=== PATIENT | male | born 1965 | race Caucasian/White ===

== ENCOUNTER 2021-11-21 12:29 | Emergency (ER) | payer BC, SELFPAY ==
[2021-11-21 15:10] VITALS: BP 142/85; PULSE 78; RESP 22; TEMP 36.7; O2SAT 98; BMI 27.1
--- NOTE | 2021-11-21 15:10 | XR_ITS ---
PROCEDURE INFORMATION: Exam: XR Chest Exam date and time: 11/21/2021 3:10 PM Age: 56 years old Clinical indication: Cough TECHNIQUE: Imaging protocol: XR of the chest. Views: 2 views. COMPARISON: No relevant prior studies available. FINDINGS: Lungs: Unremarkable. No consolidation. Pleural spaces: Unremarkable. No pleural effusion. No pneumothorax. Heart/Mediastinum: Unremarkable. No cardiomegaly. Bones/joints: Unremarkable. IMPRESSION: No acute findings.
--- NOTE | 2021-11-21 15:23 | HMH.EDUTC ---
[facility] [place] Disposition Clinical Impression: Bronchitis, Viral syndrome Disposition: Home, Self-Care Condition on Discharge: Good Instructions: Preventing the Spread of Coronavirus Discharge Instructions, DI for COVID-19 (Suspected or Confirmed ) Additional Instructions: Drink plenty of fluids. Take tylenol or ibuprofen for pain or fever. Take the medications as directed. Follow up with your regular doctor. GO TO THE ER FOR ANY WORSENING SYMPTOMS Quarantine until you know the results of your covid-19 test. If it is positive, the health department should call you and give you further instructions about your length of Quarantine and other things. Notify your school or workplace of your results and follow their instructions regarding return to work/school. Prescriptions: Benzonatate [Benzonatate 100mg cap] 100 mg PO TIDP PRN #30 cap PRN Reason: Cough Transmission Status: Pending to [facility] #[id number] methylPREDNISolone [Medrol] 4 mg PO DIRECTED 6 Days #21 packet Transmission Status: Pending to [facility] #[id number] guaiFENesin [Mucinex 600mg tablet] 1 - 2 tab PO BIDP PRN #30 tab PRN Reason: Congestion Transmission Status: Pending to [facility] #[id number] Azithromycin [Z-Alberto 250mg Tab*] 250 mg PO UD DOSE PK #6 tab Transmission Status: Pending to [facility] #[id number] Referrals: Edison Estrella [Primary Care Provider] - Time of Disposition: 15:51 Medical Decision Making - Medical Records Medical records reviewed: No: I reviewed the patient's medical records. - Angus Inquiry Pt receiving controlled substance: No Vital Signs: 11/21/21 15:10 Temperature 98.1 F Temperature Source Oral Pulse Rate [Left] 78 Respiratory Rate 22 Blood Pressure [Right Arm] 142/85 H Blood Pressure Mean [Right Arm] 104 02 Sat by Pulse Oximetry 98 - Lab Data Lab Results 11/21/21 15:30: Influenza Type A Ag Negative, Influenza Type B Ag Negative Orders (Tests/Meds): ORDERS Category Date Time Status Chest XR 2 view (NOT portable) [XR chest 2V] Stat Exams 11/21/21 15:10 Taken Full Resp Panel w/COVID ([facility]) Routine Lab 11/21/21 15:13 Ordered [facility] [place] HPI - General Stated complaint: cough, congestion Time Seen by Provider: 11/21/21 15:23 Mode of Arrival: Ambulatory Source of Information: Patient Limitations: No Limitations Description of Symptoms (Recalled from Triage Doc. by RN): pt c/o a productive cough with green sputum, SOA and chest congestion. HEENT Symptoms (Recalled from RN notes): No Resp Symptoms (Recalled from RN notes): Yes (productive cough with green sputum, chest congestion and SOA) Skin Symptoms (Recalled from RN notes): No MS Symptoms (Recalled from RN notes): No Functional Status (Recalled from RN notes): wnl - History of Present Illness Provider Complaint: He states that for the past 4 days he has been getting more sinus and chest congestion. He denies any fever or chills. HE has been vaccinated against covid-19. - Related Data Previous Rx's Medication Instructions Recorded Azithromycin [Z-Alberto 250mg Tab*] 250 mg PO UD DOSE PK #6 tab 11/21/21 Benzonatate [Benzonatate 100mg 100 mg PO TIDP PRN #30 cap 11/21/21 cap] guaiFENesin [Mucinex 600mg tablet] 1 - 2 tab PO BIDP PRN #30 tab 11/21/21 methylPREDNISolone [Medrol] 4 mg PO DIRECTED 6 Days #21 11/21/21 packet Allergies Allergy/AdvReac Type Severity Reaction Status Date / Time Penicillins Allergy Verified 11/21/21 15:13 - Worker's Comp Is this a Worker's Comp case?: No H History - Hepatitis A Screen Drug use history?: No High risk sexual behaviors?: No History of sexually transmitted infection?: No Currently employed?: No Childcare worker?: No Do you have indoor plumbing?: Yes Do you have electricity?: Yes Attestation statement:: This patient has been screened for Hepatitis A risk factors. I have reviewed the patient's past medical history: Yes ROS Obt
[2021-11-21 15:42] LABS: UTC Influenza A Antigen Negative (Negative); UTC Influenza B Antigen Negative (Negative)
[2021-11-21 16:03] LABS: Adenovirus,PCR Not Detected (NotDetected); Bordetella Pertussis Not Detected (NotDetected); Chlamydophila Pneumoniae, PCR Not Detected (NotDetected); Coronavirus 19, PCR Not Detected (NotDetected); Coronavirus 229E Not Detected (NotDetected); Coronavirus NL63 Not Detected (NotDetected); Coronavirus OC43 Not Detected (NotDetected); Coronovirus HKU1,PCR Not Detected (NotDetected); Human Metapneumovirus Not Detected (NotDetected); Influenza A, PCR Not Detected (NotDetected); Influenza AH1, 2009 Not Detected (NotDetected); Influenza AH1, PCR Not Detected (NotDetected); Influenza AH3,PCR Not Detected (NotDetected); Influenza B, PCR Not Detected (NotDetected); Mycoplasma Pneumoniae, PCR Not Detected (NotDetected); Parainfluenza 1, PCR Not Detected (NotDetected); Parainfluenza 2, PCR Not Detected (NotDetected); Parainfluenza 3, PCR Not Detected (NotDetected); Parainfluenza 4, PCR Not Detected (NotDetected); Respiratory Syncytial Virus Not Detected (NotDetected); Rhinovirus/Enterovirus Not Detected (NotDetected)
[2021-11-21 16:15] VITALS: BP 142/85; PULSE 78; RESP 22; TEMP 36.7
== END 2021-11-21 16:16 | disposition home or self-care (01) ==
PROVIDERS: Emergency Provider Nurse Practitioner Family; PCP Internal Medicine
DX: J20.9 Acute bronchitis, unspecified (principal); B34.9 Viral infection, unspecified
CPT/HCPCS: 71046; 87581; 87632; 87798; 87804; 96372; 99203; C9803; G0463; U0003; U0005

== ENCOUNTER 2022-05-22 09:51 | Emergency (ER) | payer BC, SELFPAY ==
[2022-05-22 10:43] VITALS: BP 142/88; PULSE 98; RESP 16; TEMP 37.6; O2SAT 99; BMI 26.0
--- NOTE | 2022-05-22 10:55 | HMH.EDUTC ---
[facility] [place] Clinical Impression: Viral syndrome, Bronchitis, Exposure to COVID-19 virus Disposition: Home, Self-Care Condition on Discharge: Good Instructions: DI for Acute Bronchitis, DI for COVID-19 (Suspected or Confirmed ), Preventing the Spread of Coronavirus Discharge Instructions Additional Instructions: Drink plenty of fluids. Take tylenol or ibuprofen for pain or fever. Take the medications as directed. Follow up with your regular doctor. GO TO THE ER FOR ANY WORSENING SYMPTOMS Quarantine until you know the results of your covid-19 test. Notify your school or workplace of your results and follow their instructions regarding return to work/school. Prescriptions: Ondansetron [Zofran 4mg ODT] 4 mg PO Q8HP PRN #20 tab PRN Reason: Nausea Transmission Status: Received by [facility] #[id number] Benzonatate [Benzonatate 100mg cap] 100 mg PO TIDP PRN #30 cap PRN Reason: Cough Transmission Status: Received by [facility] #[id number] methylPREDNISolone [Medrol] 4 mg PO DIRECTED 6 Days #21 packet Transmission Status: Received by [facility] #[id number] Azithromycin [Z-Alberto 250mg Tab*] 250 mg PO UD DOSE PK #6 tab Transmission Status: Received by [facility] #[id number] Referrals: Edison Estrella [Primary Care Provider] - Time of Disposition: 11:12 Medical Decision Making - Medical Records Medical records reviewed: No: I reviewed the patient's medical records. - Angus Inquiry Pt receiving controlled substance: No Vital Signs: 05/22/22 10:43 05/22/22 11:13 Temperature 99.7 F H 99.7 F H Temperature Source Oral Pulse Rate 98 H Pulse Rate [Left] 98 H Respiratory Rate 16 16 Blood Pressure 142/88 H Blood Pressure [Right Arm] 142/88 H Blood Pressure Mean [Right Arm] 106 02 Sat by Pulse Oximetry 99 [facility] [place] - General Stated complaint: chills, wheezing, cough, nausea Time Seen by Provider: 05/22/22 10:55 Description of Symptoms (Recalled from Triage Doc. by RN): patient comes in today with complaints of cough, chills, sinus congestion. symptoms began monday HEENT Symptoms (Recalled from RN notes): Yes Resp Symptoms (Recalled from RN notes): Yes Skin Symptoms (Recalled from RN notes): No MS Symptoms (Recalled from RN notes): No Functional Status (Recalled from RN notes): wnl - History of Present Illness Provider Complaint: He states that for the past 48 hours he has had worsening cough, sinus congestion, ear pain, body aches and chills. - Related Data Previous Rx's Medication Instructions Recorded Azithromycin [Z-Alberto 250mg Tab*] 250 mg PO UD DOSE PK #6 tab 11/21/21 Benzonatate [Benzonatate 100mg 100 mg PO TIDP PRN #30 cap 11/21/21 cap] guaiFENesin [Mucinex 600mg tablet] 1 - 2 tab PO BIDP PRN #30 tab 11/21/21 methylPREDNISolone [Medrol] 4 mg PO DIRECTED 6 Days #21 11/21/21 packet Azithromycin [Z-Alberto 250mg Tab*] 250 mg PO UD DOSE PK #6 tab 05/22/22 Benzonatate [Benzonatate 100mg 100 mg PO TIDP PRN #30 cap 05/22/22 cap] Ondansetron [Zofran 4mg ODT] 4 mg PO Q8HP PRN #20 tab 05/22/22 methylPREDNISolone [Medrol] 4 mg PO DIRECTED 6 Days #21 05/22/22 packet Allergies Allergy/AdvReac Type Severity Reaction Status Date / Time Penicillins Allergy Verified 05/22/22 10:45 - Worker's Comp Is this a Worker's Comp case?: No [facility] History - Hepatitis A Screen Attestation statement:: This patient has been screened for Hepatitis A risk factors. I have reviewed the patient's past medical history: Yes ROS Obtained: Yes All systems reviewed & no additional complaints - Constitutional Constitutional: Reports as per HPI - Eyes Eyes: Denies eye discharge - ENT Ears, Nose, Mouth, and Throat: Reports as per HPI - Cardiovascular Cardiovascular: Denies chest pain Physical Exam - General General appearance: alert, in no apparent distress - Head Head exam: atraumatic, normocephalic, normal inspect
[2022-05-22 11:13] VITALS: BP 142/88; PULSE 98; RESP 16; TEMP 37.6
== END 2022-05-22 11:20 | disposition home or self-care (01) ==
PROVIDERS: Emergency Provider Nurse Practitioner Family; PCP Internal Medicine
DX: U07.1 COVID-19 (principal); R50.9 Fever, unspecified; R06.2 Wheezing; R05.9 Cough, unspecified; R11.0 Nausea
CPT/HCPCS: 99212; C9803; G0463; U0003; U0005